=== PATIENT | male | born 1975 | race Caucasian/White ===

== ENCOUNTER → 2025-08-10 10:30 | Outpatient (BNVA) | payer OTHER, SELFPAY | PROVIDERS: PCP Family Medicine; Visit Provider Family Medicine | DX: E55.9 Vitamin D deficiency, unspecified (principal); R73.03 Prediabetes; I10 Essential (primary) hypertension; F41.9 Anxiety disorder, unspecified; F32.A Depression, unspecified; K21.9 Gastro-esophageal reflux disease without esophagitis; E66.9 Obesity, unspecified; Z12.5 Encounter for screening for malignant neoplasm of prostate; R79.89 Other specified abnormal findings of blood chemistry | CPT/HCPCS: 80053; 80061; 82306; 82607; 83036; 84443; 85025; G0103 ==

== ENCOUNTER 2025-08-25 12:44 | Outpatient (CLI) | payer OTHER, SELFPAY ==
--- NOTE | 2025-08-25 12:45 | CT_ITS ---
WS: [id number] LDCT LUNG CANCER SCREENING TECHNIQUE: Noncontrast CT of the chest with coronal and sagittal reformatted images. CLINICAL INFORMATION: F17.219 - Nicotine dependence, cigarettes, with unspecifi... COMPARISON: None. DLP: 353.79 mGy.cm DIvol: Mean CTDIvol: 8.50 (mGy) All CT scans at [facility] use at least one of these dose optimization techniques: automated exposure control; mA and/or kV adjustment per patient size (includes targeted exams where dose is matched to clinical indication); or iterative reconstruction. FINDINGS: Small noncalcified nodule LEFT upper lobe anteriorly. Noncalcified nodule LEFT lower lobe posteriorly measuring 4 mm. A few tiny scattered micronodules. LEFT nodular thyroid mass with calcification extending into the mediastinum. Recommend further evaluation with ultrasound and contrast-enhanced neck CT. Slight LEFT RIGHT mass effect on the trachea. Normal caliber thoracic aorta. No mediastinal or hilar lymphadenopathy. Adrenal glands are normal. No axillary lymphadenopathy. Mild thoracic curve. Hypertrophic changes thoracic spine. CT/CT lung screening [id number] IMPRESSION: LEFT thyroid mass extending into the mediastinum. Recommend further evaluation with ultrasound and contrast-enhanced neck CT. LUNG-RADS: 2S-Benign Appearance or Behavior with Significant Findings FOLLOW UP: 12 Month: Continue annual screening with LDCT
--- NOTE | 2025-08-25 12:46 | XRR_ITS ---
PROCEDURE INFORMATION: Exam: XR Bilateral Sacroiliac Joints Exam date and time: 08/25/2025 12:57 PM Age: 49 years old Clinical indication: Other: Low back pain; Lower back pain x few years. PT states pain runs down lt leg. 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 . . TECHNIQUE: Imaging protocol: XR bilateral XR of the sacroiliac joints. Views: 3 or more views. 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 Mild osteoarthritis of the hips bilaterally. Soft tissues: Normal. XR/XR sacroiliac jts m 3V [id number] IMPRESSION: 1. 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 2. Mild osteoarthritis of the hips bilaterally.
--- NOTE | 2025-08-25 12:46 | XRR_ITS ---
PROCEDURE INFORMATION: Exam: XR Lumbosacral Spine Exam date and time: 08/25/2025 12:57 PM Age: 49 years old Clinical indication: Low back pain; Lower back pain x few years. PT states pain runs down lt leg. 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 . . TECHNIQUE: Imaging protocol: Radiologic exam of the lumbosacral spine. Views: 2 or 3 views. COMPARISON: CR XR sacroiliac jts m 3V [id number] 08/25/2025 12:57 PM FINDINGS: Bones/joints: Moderate to severe L5/S1 disc space narrowing with multilevel productive degenerative endplate changes throughout the spine. Soft tissues: Unremarkable. XR/XR lumbar spine 2-3V* [id number] IMPRESSION: Moderate to severe L5/S1 disc space narrowing with multilevel productive degenerative endplate changes throughout the spine.
== END 2025-08-25 12:45 | disposition home or self-care (01) ==
LOC: RAD 12:44
PROVIDERS: PCP Family Medicine; Visit Provider Family Medicine
DX: Z12.2 Encounter for screening for malignant neoplasm of respiratory organs (principal); F17.219 Nicotine dependence, cigarettes, with unspecified nicotine-induced disorders; M54.50 Low back pain, unspecified; M16.0 Bilateral primary osteoarthritis of hip; M51.372 Other intervertebral disc degeneration, lumbosacral region with discogenic back pain and lower extremity pain; M89.48 Other hypertrophic osteoarthropathy, other site; M40.04 Postural kyphosis, thoracic region
CPT/HCPCS: 71271; 72100; 72202

== ENCOUNTER 2025-08-28 07:57 | Outpatient (CLI) | payer OTHER, SELFPAY ==
--- NOTE | 2025-08-28 08:00 | CTR_ITS ---
PROCEDURE INFORMATION: Exam: CT Neck With Contrast Exam date and time: 08/28/2025 8:24 AM Age: 49 years old Clinical indication: Condition or disease; Thyroid disorder; Other: Disorder of thyroid, unspecified; --follow up , abnormal thyroid; Additional info: E07.9 - disorder of thyroid, unspecified TECHNIQUE: Imaging protocol: Computed tomography of the neck with contrast. Radiation optimization: All CT scans at this facility use at least one of these dose optimization techniques: automated exposure control; mA and/or kV adjustment per patient size (includes targeted exams where dose is matched to clinical indication); or iterative reconstruction. Contrast material: OMNI 350; Contrast volume: 100 ml; Contrast route: INTRAVENOUS (IV); COMPARISON: CT lung screening [id number] 08/25/2025 12:54 PM RADIATION DOSE METRICS: Total DLP (mGy-cm): 511.72 FINDINGS: Salivary glands: There is bilateral parotid enlargement with some surrounding inflammation. This is especially seen on series 3 and image 34 and on series 3 and image 30. Findings are concerning for bilateral parotiditis. Pharynx: Unremarkable. No significant tonsillar enlargement. Larynx: Unremarkable. Epiglottis is normal. Thyroid: There is a 3.3 cm left thyroid nodule extending into the superior mediastinum. There is a hypodense nodule in the right thyroid lobe measuring 2.7 cm. The findings are likely secondary to goiter. Ultrasound is recommended for further characterization. Trachea: Visualized trachea is unremarkable. Lungs: Unremarkable as visualized. Lymph nodes: Unremarkable. No lymphadenopathy. Bones/joints: Unremarkable. No acute fracture. Soft tissues: Unremarkable. No significant soft tissue swelling. CT/CT neck w con* [id number] IMPRESSION: 1. Bilateral parotid enlargement with surrounding inflammation concerning for bilateral parotiditis. 2. Large left thyroid nodule measuring up to 3.3 cm extending in the mediastinum 2.7 cm right thyroid nodule. Findings are concerning for goiter. These should be evaluated by ultrasound of the thyroid gland for further evaluation.
--- NOTE | 2025-08-28 12:15 | USR_ITS ---
PROCEDURE INFORMATION: Exam: US Soft Tissue Head and Neck, Thyroid Exam date and time: 08/28/2025 8:30 AM Age: 49 years old Clinical indication: Condition or disease; Thyroid disorder; Other: Disorder of thyroid, unspecified; Additional info: E07.9 - disorder of thyroid, unspecified TECHNIQUE: Imaging protocol: Real-time ultrasound scan of the neck with image documentation. Exam focused on the thyroid. COMPARISON: CT neck w con* [id number] 08/28/2025 8:24 AM FINDINGS: Right thyroid lobe: Right thyroid lobe measures 6.5 x 3.4 x 4.0 cm. Nodule 1: 3.2 x 2.8 x 3.6 cm solid hypoechoic lesion in the right thyroid midpole. This demonstrates no echogenic foci is wider than tall and has smooth margins. This is a TI-RADS 4 lesion and is moderately suspicious. Ultrasound-guided biopsy is recommended. Nodule 2: In the right thyroid lobe midpole, a 2.0 x 1.9 x 2.0 cm solid hypoechoic nodule is seen which is wider than tall with smooth margins and no echogenic foci. This is a TI-RADS 4 lesion and is moderately suspicious. Ultrasound-guided biopsy is recommended. Left thyroid lobe: Left thyroid lobe measures 8.3 x 3.9 x 3.5 cm and is enlarged. In the midpole of the left thyroid lobe, a 2.6 x 2.4 x 7.0 cm solid hypoechoic nodule which is wider than tall with smooth margins and no echogenic foci is demonstrated. This is a TI-RADS 4 lesion and is moderately suspicious. Ultrasound-guided biopsy is recommended. Nodule 2: In the upper pole, a 1.1 x 1.0 x 2.1 cm solid hypoechoic nodule which is TI-RADS 4 is identified. This is moderately suspicious. Interval follow-up in 12 months is recommended. Isthmus: Thyroid isthmus measures 0.4 cm. Neck: There are small bilateral jugular chain lymph nodes demonstrated. US/US thyroid [id number] IMPRESSION: 1. Right thyroid nodules, on the right measuring up to 3.6 cm. Ultrasound-guided biopsy is recommended of the TI-RADS 4 lesions. 2. Left thyroid nodules, the largest measuring up to 7.0 cm in the midpole. The largest of these requires ultrasound-guided biopsy. The smaller nodule in the upper pole requires follow-up in 12 months.
== END 2025-08-28 07:58 | disposition home or self-care (01) ==
LOC: RAD 08:01
PROVIDERS: PCP Family Medicine; Visit Provider Family Medicine
DX: E07.9 Disorder of thyroid, unspecified (principal); J98.59 Other diseases of mediastinum, not elsewhere classified; E04.2 Nontoxic multinodular goiter
CPT/HCPCS: 70491; 76536